=== PATIENT | female | born 1980 ===

== ENCOUNTER → 2024-04-07 | Outpatient (CLI) | payer OTHER ==
[2024-04-20 12:56] LABS: HPV HIGH RISK BY TMA Not Detected; HPV SOURCE Cervical
== END ==
LOC: LAB 10:52 → LAB SHORT 10:52
PROVIDERS: Nurse Practitioner Family
DX: Z12.4 Encounter for screening for malignant neoplasm of cervix (principal)
CPT/HCPCS: 87624; G0123

== ENCOUNTER 2025-06-11 17:04 | Emergency (ER) | payer OTHER ==
[~2025-06-11] VITALS: Ht 172.7 cm; Wt 95.2 kg
[~2025-06-11 17:04] MED LIST: ACET500 PO; COMBIVENT RESPIM4 G1 INH; COVARYX H.S. T1 EACH TOP; HYDROCODONE PO; IPRAT-ALBUT 0.5-3 ML INH; MELO7.5 PO; PROGESTERO50 MG/1 ML PO; TRAM50 PO
[2025-06-11] MEDS ORDERED: Robaxin750 MG PO (19:27)
[2025-06-11] MEDS ORDERED: RX Prepack 6 Tabs Oxycodone 5mg UD ONE (19:30)
[2025-06-11 19:59] VITALS: BP 144/95
== END 2025-06-11 20:00 | disposition home or self-care (01) ==
LOC: ER 17:04
DX: S22.080A Wedge compression fracture of T11-T12 vertebra, initial encounter for closed fracture (principal); M25.561 Pain in right knee; W11.XXXA Fall on and from ladder, initial encounter; J44.9 Chronic obstructive pulmonary disease, unspecified; Z88.5 Allergy status to narcotic agent; Z79.899 Other long term (current) drug therapy
CPT/HCPCS: 72128; 72131; 73562-RT; 99284-25; A9270